=== PATIENT | male | born 1995 | race Native Hawaiian/Other Pacific Islander ===

== ENCOUNTER 2021-01-12 07:49 | Outpatient (CLI) | payer BC ==
[~2021-01-12 07:49] MED LIST: BROMFED DM PO; CEFD300C2 PO; CHLOSUS43 PO; FLUT0.05 NAS; MEDROL DOSEPAK4 MG OR
== END 2021-01-12 19:12 | disposition home or self-care (01) ==
LOC: US 07:49
PROVIDERS: ATTEND Nurse Practitioner Family
DX: E03.9 Hypothyroidism, unspecified (principal)

== ENCOUNTER 2023-04-29 10:39 | Outpatient (CLI) | payer BC | END 2023-04-29 19:07 | disposition home or self-care (01) | LOC: US 10:39 | PROVIDERS: ATTEND Nurse Practitioner Family | DX: M79.604 Pain in right leg (principal); M79.605 Pain in left leg ==

== ENCOUNTER 2023-05-07 10:17 | Outpatient (CLI) | payer BC ==
[2023-05-07 10:42] LABS: PLATELET COUNT 311 K/uL (142-355)
[2023-05-07 10:49] LABS: PARTIAL THROMBOPLASTIN TIME 33.5 SECONDS (23.9-36.7)
[2023-05-07 10:55] LABS: POTASSIUM 4.1 mmol/L (3.6-5.2)
== END 2023-05-07 20:45 | disposition home or self-care (01) ==
LOC: US 10:17
PROVIDERS: ATTEND Nurse Practitioner Family
DX: I82.813 Embolism and thrombosis of superficial veins of lower extremities, bilateral (principal)
CPT/HCPCS: 36415; 80053; 85027; 85379; 85610; 85730